=== PATIENT | female | born 1955 | race Caucasian/White ===

== ENCOUNTER 2024-02-07 12:55 | Emergency (ER) | payer MEDICARE, SELFPAY ==
--- NOTE | 2024-02-07 13:00 | ED.EXTPRO ---
HPI - Extremity Problem <Deion Nick PA-C - Last Filed: 02/08/24 12:53> General Chief complaint: Extremity Injury, Lower Stated complaint: Rt knee pain and swelling w/o known cause Time Seen by Provider: 02/07/24 13:00 History of Present Illness HPI Narrative: This is a 68-year-old female presents emergency department due to acute onset right knee pain onset last night. Patient was not recall any acute injuries but states that it began hurting last night while lying in bed. She was able to walk to the bathroom but states that the pain worsened and had a very hard time walking back. She also reports some swelling to the right knee. Patient states that she was a history of gout, osteoarthritis, rheumatoid arthritis. Review of Systems <ANDREW Wiseman Last Filed: 02/08/24 12:53> Review of Systems Narrative: GENERAL: Denies chills, fatigue, malaise, fever, sweats. HEENT: Denies sinus pain, ear pain, sore throat, difficulty swallowing, dizziness. RESPIRATORY: Denies dyspnea, cough, wheezing, hemoptysis, sputum. CARDIOVASCULAR: Denies chest pain, palpitations, orthopnea, edema, GASTROINTESTINAL: Denies nausea, vomiting, abdominal pain, diarrhea, constipation, melena. : Denies dysuria, frequency, incontinence, hematuria, urinary retention. MUSCULOSKELETAL: Reports right knee pain and swelling SKIN: Denies rash, skin lesions, or other NEUROLOGIC: Denies weakness, headache, numbness, change in speech, confusion, seizures, incoordination. PSYCHIATRIC: No concerning psychosocial issues. 12 point review of systems is negative except for those stated above Patient History <ANDREW Wiseman Last Filed: 02/08/24 12:53> Social History Smoking Status: Never smoker Exam <ANDREW Wiseman Last Filed: 02/08/24 12:53> Narrative Exam Narrative: GENERAL: Well-developed patient, in mild distress. HEAD: Atraumatic. Normocephalic. EYES: Pupils equal round and reactive. Extraocular motions intact. No scleral icterus. No injection or drainage. ENT: Nose without bleeding, purulent drainage. Throat without erythema, tonsillar hypertrophy or exudate. Airway patent. NECK: Trachea midline. Non tender EXTREMITIES: Generalized tenderness to palpation to the right knee. Pain with the range of motion but no joint stiffness, no erythema. Neurovascularly intact throughout. Also has tenderness to palpation to the posterior calf. NEURO: AOx3. SKIN: No rash or erythema of visible areas Initial Vital Signs Initial Vital Signs: Vital Signs Temperature 98.1 F 02/07/24 13:08 Pulse Rate 60 02/07/24 13:08 Respiratory Rate 20 02/07/24 13:08 Blood Pressure 166/73 H 02/07/24 13:08 Pulse Oximetry 98 02/07/24 13:08 Oxygen Delivery Method Room Air 02/07/24 13:08 <Zeus Villa MD - Last Filed: 02/08/24 17:53> Initial Vital Signs Initial Vital Signs: Vital Signs Temperature 98.1 F 02/07/24 13:08 Pulse Rate 60 02/07/24 13:08 Respiratory Rate 20 02/07/24 13:08 Blood Pressure 166/73 H 02/07/24 13:08 Pulse Oximetry 98 02/07/24 13:08 Oxygen Delivery Method Room Air 02/07/24 13:08 Procedures <Deion Nick PA-C - Last Filed: 02/08/24 12:53> Joint Aspiration Joint Asp./Inject. 1: Time Out Performed: Yes Side of body: right Joint Aspirated: knee Ultrasound Guidance: No Skin Prep: Chlorhexidine Local Anesthetic: lidocaine 1% Needle Size Used: 18G Fluid Obtained: bloody Patient Tolerated Procedure: Well Complications: none Additional Comments: Performed by my attending physician, Dr. Villa <Zeus Villa MD - Last Filed: 02/08/24 17:53> Joint Aspiration Joint Asp./Inject. 1: Time Out Performed: Yes Joint Aspirated: knee Total fluid obtained (mL): 50 Additional Comments: Performed by my attending physician, Dr. Villa. Jopint fluid sent for cell count, crystals, Gram stain, culture. Course <Deion Nick PA-C - Last Filed: 02/08/24 12:53> Orders Ordered: Discontinued Medications Ketorolac Tromethamine (Ketorolac 30 Mg/Ml Vial) 15 mg IM NOW ONE Stop: 02/07/24 14:12 Last Admin: 02/07/24 14:16 Dose: 15 mg Documented By: KEDAR Lidocaine HCl (Lidocaine 1% 20 Ml) 3 ml SUBCUT NOW ONE Stop: 02/07/24 15:09 Last Admin: 02/07/24 15:49 Dose: 3 ml Documented By: KEDAR Morphine Sulfate (Morphine 4 Mg/Ml Inj) 4 mg IV NOW ONE Stop: 02/07/24 14:35 Last Admin: 02/07/24 14:38 Dose: 4 mg Documented By: KEDAR Ondansetron HCl (Ondansetron 4 Mg/2 Ml Inj) 4 mg IV NOW ONE Stop: 02/07/24 14:35 Last Admin: 02/07/24 14:40 Dose: 4 mg Documented By: KEDAR Consultations Consultation #1: [id number]: Discussed case with the on-call orthopedist, Dr. Kenyon, who stated it would be okay to aspirate the hematoma and no admission or emergent follow up needed. Vital Signs Vital signs: Vital Signs - 8 hr 02/07/24 13:08 Temperature 98.1 F Pulse Rate 60 Respiratory Rate 20 Blood Pressure 166/73 H Pulse Oximetry 98 Oxygen Delivery Method Room Air <Zeus Villa MD - Last Filed: 02/08/24 17:53> Orders Ordered: Discontinued Medications Ketorolac Tromethamine (Ketorolac 30 Mg/Ml Vial) 15 mg IM NOW ONE Stop: 02/07/24 14:12 Last Admin: 02/07/24 14:16 Dose: 15 mg Documented By: KEDAR Lidocaine HCl (Lidocaine 1% 20 Ml) 3 ml SUBCUT NOW ONE Stop: 02/07/24 15:09 Last Admin: 02/07/24 15:49 Dose: 3 ml Documented By: KEDAR Morphine Sulfate (Morphine 4 Mg/Ml Inj) 4 mg IV NOW ONE Stop: 02/07/24 14:35 Last Admin: 02/07/24 14:38 Dose: 4 mg Documented By: KEDAR Ondansetron HCl (Ondansetron 4 Mg/2 Ml Inj) 4 mg IV NOW ONE Stop: 02/07/24 14:35 Last Admin: 02/07/24 14:40 Dose: 4 mg Documented By: KEDAR Vital Signs Vital signs: Vital Signs - 8 hr 02/07/24 13:08 Temperature 98.1 F Pulse Rate 60 Respiratory Rate 20 Blood Pressure 166/73 H Pulse Oximetry 98 Oxygen Delivery Method Room Air MDM - Extremity (Nontraumatic) <Deion Nick PA-C - Last Filed: 02/08/24 12:53> Lab Data Labs: Lab Results 02/07/24 Range/Units 15:44 Fluid Color Red Fluid Appearance Turbid Fluid RBC 0732268 /uL Fld Tot Nucleated Cell 3132 /uL Fluid Neutrophils % 56 % Fluid Lymphocytes % 37 % Fluid Eosinophils % 2 % Fluid Meso/Macro/Green % 5 % Fluid Crystals None present (NONE) Body Fluid Clot No clots present Imaging Data Extremity x-ray #1: Radiologist's Impression: [address] [address] XRay Report Signed Patient: Yue Smallwood MR#: [id number] : 1955 Acct:[id number] Age/Sex: 68 / F Date of Service: 02/07/24 Loc: ED Accession Number: [id number] Procedure: XR knee RT 3V Ordering Provider: Deion Nick PA-C PROCEDURE: XR KNEE RT 3V INDICATIONS: R knee pain TECHNIQUE: 3 views of the knee were acquired. COMPARISON: None. FINDINGS: Bones: No fractures or dislocations. No suspicious bony lesions. Tricompartmental joint space narrowing with associated osteophytosis. Subchondral sclerosis and cystic change of the medial tibiofemoral compartment, with early bony deformity. Soft tissues: Marked joint effusion. No suspicious soft tissue calcifications. IMPRESSION: No acute bony abnormality. Marked joint effusion. Internal derangement not excluded. Moderate to severe tricompartmental osteoarthritis. Kellgren-Rell Grade 2-3. Dictated by: Jean Marie Peterson M.D. on 02/07/2024 at 14:30 Approved by: Jean Marie Peterson M.D. on 02/07/2024 at 14:31 US - DVT: Radiologist's Impression: [address] [address] Ultrasound Report Signed Patient: Yue Smallwood MR#: [id number] : 1955 Acct:[id number] Age/Sex: 68 / F Date of Service: 02/07/24 Loc: ED Accession Number: [id number] Procedure: US periph venous low extrem rt Ordering Provider: Deion Nick PA-C PROCEDURE: US PERIPH VENOUS LOW EXTREM RT INDICATIONS: Right lower extremity edema TECHNIQUE: Real-time imaging, as well as color and pulse Doppler interrogation, were performed of the lower extremity deep veins from the inguinal ligament to the popliteal fossa, with documentation of the visualized calf veins. COMPARISON: None. FINDINGS: The common femoral, femoral, popliteal, and the visualized calf veins are normally compressible, and free of intraluminal thrombus. Color and pulse Doppler demonstrate normal phasic intraluminal flow. There is normal augmentation response to distal compression maneuver. Superior to the knee, there is a large, hypoechoic collection measuring 7.6 x 8.1 x 4.2 cm. IMPRESSION: No findings of lower extremity deep venous thrombosis. Large suprapatellar hematoma. Dictated by: Jean Marie Peterson M.D. on 02/07/2024 at 14:37 Approved by: Jean Marie Peterson M.D. on 02/07/2024 at 14:37 MDM Narrative Medical decision making narrative: ED course: This is a 68-year-old female presents emergency department due to acute onset right knee pain. X-ray was ordered which was negative for fractures but did show a large effusion. Ultrasound DVT he was ultrasound also ordered as patient was presenting with some calf tenderness. Ultrasound showed a large suprapatellar hematoma. This was discussed with orthopedist, Dr. Kenyon, who stated that would be okay to aspirate. Discussed case with my attending physician, Dr. Villa, who performed the joint aspiration without complications. Aspirate contained grossly blood. We will send fluid for cell count, culture, and crystals. Patient knee was wrapped in Art wrap, given knee immobilizer, and will follow up with Dr. Kenyon's office. CC: Right knee pain Complicating co-morbidities: Gout, osteoarthritis, rheumatoid arthritis Data collected from: Previous notes Medical records reviewed: Patient has no records to review Differential considered, but not limited to: Gout, rheumatoid arthritis, ACL injury, meniscal injury, fracture Exam documented above, pertinent findings include: No significant erythema or joint stiffness concerning for septic arthritis Lab Test results independently reviewed as above. Pertinent findings: None obtained Imaging studies independently reviewed: As above Scores Used: None MIPS Elements: None Consultations: None Treatments: Joint inspiration Re-evaluations: None Discussion: Discussed plan with the patient was comfortable with the plan Diagnosis: Knee injury Disposition: see below, along with detailed discharge instructions that have been reviewed with patient as well as indications for ED re-evaluation and additional outpatient follow up <Zeus Villa MD - Last Filed: 02/08/24 17:53> Lab Data Labs: Lab Results 02/07/24 Range/Units 15:44 Fluid Color Red Fluid Appearance Turbid Fluid RBC [id number] /uL Fld Tot Nucleated Cell 3132 /uL Fluid Neutrophils % 56 % Fluid Lymphocytes % 37 % Fluid Eosinophils % 2 % Fluid Meso/Macro/Green % 5 % Fluid Crystals None present (NONE) Body Fluid Clot No clots present Discharge Plan Departure Patient Disposition: Home Clinical Impression: Effusion of knee Activity Restrictions/Additional Instructions: Thank you for coming to the [facility] Emergency Department today. I am glad that we are able to aspirate the knee. This should provide some pain relief. Please also follow up with Dr. Kenyon's office for outpatient management and is you may have injured a ligament or other soft tissue your knee. X-rays showed no fractures. The ultrasound showed no blood clot. You may continue to take the pain medications that you have already been prescribed as prescribed. Please return to the emergency department if you develop any chest pain, shortness of breath, redness coming from the knee, fevers or any other concerning signs or symptoms. I hope you feel better soon. Please follow up with your primary care provider within a week if your symptoms continue. If you do not have a primary care provider please contact the [facility] Resource line at [phone]. They will ask some questions about your medical history and help you get set up with a provider in the community. Referrals: Haseeb Kenyon MD [Physician] - (f/u R knee injury ) Stand Alone Forms: Patient Portal/API ED Sign-out <Zeus Villa MD - Last Filed: 02/08/24 17:53> Cosign ED Attending Rajature Attestation: I was immediately available in the department for consultation. This documentation has been reviewed and I agree with assessment and plan. Supervised by Zeus Villa MD
[2024-02-07 13:08] VITALS: BP 166/73; PULSE 60; RESP 20; TEMP 36.7; O2SAT 98; BMI 34.2
--- NOTE | 2024-02-07 13:10 | DI.US.S_ITS ---
PROCEDURE: US PERIPH VENOUS LOW EXTREM RT INDICATIONS: Right lower extremity edema TECHNIQUE: Real-time imaging, as well as color and pulse Doppler interrogation, were performed of the lower extremity deep veins from the inguinal ligament to the popliteal fossa, with documentation of the visualized calf veins. COMPARISON: None. FINDINGS: The common femoral, femoral, popliteal, and the visualized calf veins are normally compressible, and free of intraluminal thrombus. Color and pulse Doppler demonstrate normal phasic intraluminal flow. There is normal augmentation response to distal compression maneuver. Superior to the knee, there is a large, hypoechoic collection measuring 7.6 x 8.1 x 4.2 cm. IMPRESSION: No findings of lower extremity deep venous thrombosis. Large suprapatellar hematoma. Dictated by: Jean Marie Peterson M.D. on 02/07/2024 at 14:37 Approved by: Jean Marie Peterson M.D. on 02/07/2024 at 14:37
--- NOTE | 2024-02-07 13:10 | DI.RAD.S_ITS ---
PROCEDURE: XR KNEE RT 3V INDICATIONS: R knee pain TECHNIQUE: 3 views of the knee were acquired. COMPARISON: None. FINDINGS: Bones: No fractures or dislocations. No suspicious bony lesions. Tricompartmental joint space narrowing with associated osteophytosis. Subchondral sclerosis and cystic change of the medial tibiofemoral compartment, with early bony deformity. Soft tissues: Marked joint effusion. No suspicious soft tissue calcifications. IMPRESSION: No acute bony abnormality. Marked joint effusion. Internal derangement not excluded. Moderate to severe tricompartmental osteoarthritis. Kellgren-Rell Grade 2-3. Dictated by: Jean Marie Peterson M.D. on 02/07/2024 at 14:30 Approved by: Jean Marie Peterson M.D. on 02/07/2024 at 14:31
[2024-02-07] MEDS: KETOROLAC 30 MG/ML VIAL 15 MG IM (14:16)
[2024-02-07] MEDS: MORPHINE 4 MG/ML INJ IV (14:38)
[2024-02-07] MEDS: ONDANSETRON 4 MG/2 ML INJ IV (14:40)
[2024-02-07] MEDS: LIDOCAINE 1% 20 ML 3 ML SUBCUT (15:49)
[2024-02-07 16:15] VITALS: BP 153/72; PULSE 63; RESP 18; O2SAT 97
[2024-02-07 16:20] LABS: Body Fluid Red Blood Cells 2850000 /uL; Body Fluid Tot Nucleated Cells 3132 /uL
[2024-02-07 16:37] LABS: Body Fluid Appearance TURBID; Body Fluid Clotted? NO CLOTS PRESENT; Body Fluid Color RED; Crystals Body Fluid - IN-HOUSE NONE Present; Eosinophils Body Fluid 2 %; Lymphocytes Body Fluid 37 %; MESO/MACRO/MONO Body Fluid 5 %; Neutrophils Body Fluid 56 %
== END 2024-02-07 16:21 | disposition home or self-care (01) ==
PROVIDERS: Emergency Provider Physician Assistant Medical
DX: M25.461 Effusion, right knee (principal)
CPT/HCPCS: 20610; 73562; 87070; 87075; 87205; 89051; 89060; 93971; 96372; 96374; 96375; 99283; 99284; J1885; J2270; J2405

== ENCOUNTER 2024-02-16 15:35 | Emergency (ER) | payer MEDICARE, SELFPAY ==
[2024-02-16] VITALS (13 sets, daily range): BP systolic 137–186; BP diastolic 70–96; PULSE 52–68; RESP 16; TEMP 36.6; O2SAT 92–100; BMI 34.2
[2024-02-16] MEDS: HYDROMORPHONE 1 MG INJ SUBCUT (16:34)
--- NOTE | 2024-02-16 18:08 | DI.RAD.S_ITS ---
PROCEDURE: XR KNEE RT 1TO2V INDICATIONS: knee pain TECHNIQUE: 3 views of the knee were acquired. COMPARISON: [facility], , XR KNEE RT 3V, 02/07/2024, 13:11. FINDINGS: Bones: Moderate to severe similar degenerative changes. There is a questionable lucency at the left lateral tibial plateau. Soft tissues: Large joint effusion. Soft tissue swelling. IMPRESSION: Moderate to severe degenerative changes again seen. There is a questionable lucency versus artifact at the left lateral tibial plateau. Large joint effusion. Consider cross-sectional imaging to further evaluate. Dictated by: Elijah Nagel M.D. on 02/16/2024 at 18:50 Approved by: Elijah Nagel M.D. on 02/16/2024 at 18:51
--- NOTE | 2024-02-16 18:10 | ED.LOWEXIN ---
HPI - Extremity Injury (Lower) General Chief Complaint: Extremity Injury, Lower Stated Complaint: R knee pain/hem bursitis Time Seen by Provider: 02/16/24 16:25 Source: patient, RN notes reviewed and old records reviewed Limitations: no limitations History of Present Illness HPI Narrative: This is a 68 year old female with atrial fibrillation Xarelto, cardiac defibrillator and history of gout who presents with complaint of right knee pain increased swelling. Patient was here on 02/07/2024 had arthrocentesis and found to have a large suprapatellar hematoma. Patient does not recall any injury or trauma. She states it felt improved afterwards. She was using an Art wrap and a knee immobilizer followed up with Orthopedic surgery who encouraged her to take off the knee immobilizer and walk and move more to mobilize fluid. She states she was doing well until early this morning and started have increasing pain and swelling again. Patient has not had similar issues in the past. She denies any fevers or chills, no new chest pain or shortness of breath she has had some nausea with the pain. No GI or urinary symptoms. No new swelling of the lower leg. She has not had any other inappropriate bleeding or bruising. She states she has been taking her Xarelto regularly she takes 20 mg daily. Was started in June after having multiple shocks from her defibrillator in his single day. Patient lives at home with her and dog. Related Data Allergies Allergy/AdvReac Type Severity Reaction Status Date / Time cephalexin [From Keflex] Allergy Verified 02/16/24 18:48 Sulfa (Sulfonamide Allergy Verified 02/16/24 18:46 Antibiotics) Review of Systems Review of Systems ROS Unobtainable: All systems reviewed & are unremarkable except as noted in HPI and below Patient History Social History Smoking Status: Never smoker Smoking Status: Never smoker Substance Use Type: does not use Exam Narrative Exam Narrative: GENERAL: Alert and oriented x three, moderate distress HEENT: Head normocephalic, atraumatic, EOMI, pupils reactive, face symmetric, moist mucous membranes NECK: Supple, full range of motion CARDIOVASCULAR: Regular rate and rhythm without murmurs, rubs or gallops. RESPIRATORY: Breath sounds equal bilaterally, no wheezes rales or rhonchi. ABDOMEN: Soft, nontender. Normoactive bowel sounds all 4 quadrants. No guarding or rebound, rigidity, no mass : No CVA tenderness EXTREMITIES: Patient has a mildly decreased motion at the right knee but does have clear swelling. There is a small amount of bruising where she had her prior tap, this is suprapatellar. Patient does not have any discrete bony tenderness except for the right hip. She states this has been more painful as well. She has good movement at her hip. No other bony tenderness. No warmth, no erythema, no other ecchymosis or hematomas appreciated. No clubbing or edema. Neurovascularly intact NEUROLOGICAL: Cranial nerves II through XII grossly intact. Moving all extremities SKIN: Warm, dry, no petechiae, no rashes or lesions otherwise noted. Initial Vital Signs Initial Vital Signs: Vital Signs Temperature 97.8 F 02/16/24 15:45 Pulse Rate 60 02/16/24 15:45 Respiratory Rate 16 02/16/24 15:45 Blood Pressure 137/96 H 02/16/24 15:45 Pulse Oximetry 97 02/16/24 15:45 Oxygen Delivery Method Room Air 02/16/24 15:45 Procedures Joint Aspiration Joint Asp./Inject. 1: Side of body: right Joint Aspirated: knee Skin Prep: Povidone-Iodine1% Local Anesthetic: bupivacaine 0.5% Amount of anesthesia used (mL): 6 Needle Size Used: 18G Fluid Obtained: bloody Total fluid obtained (mL): 5 Patient Tolerated Procedure: Well Course Orders Ordered: ED Orders 02/16/24 18:30 XR hip w pel if done RT 2V Stat 02/16/24 18:42 CBC Auto Diff [Complete Blood Count AUTO DIFF] Stat CMP [Comprehensive Metabolic Panel] Stat PTT Partial Thromboplastin Karthik Stat Prothrombin Time INR Stat 02/16/24 19:36 CT LE RT wo con Stat 02/16/24 19:50 Body Fluid Culture Stat Cell Count w Diff Body Fluid Stat Discontinued Medications Hydrocodone Bitart/Acetaminophen (Hydrocodone/Acet 5/325 Prepack) 1 bottle MISC DIRECTED ONE Stop: 02/16/24 21:44 Last Admin: 02/16/24 21:58 Dose: 1 bottle Documented By: KEDAR Hydromorphone HCl (Hydromorphone 1 Mg Inj) 1 mg SUBCUT NOW ONE Stop: 02/16/24 16:26 Last Admin: 02/16/24 16:34 Dose: 1 mg Documented By: KEDAR Hydromorphone HCl (Hydromorphone 1 Mg Inj) 1 mg IV NOW ONE Stop: 02/16/24 19:09 Last Admin: 02/16/24 19:11 Dose: 1 mg Documented By: SARITHA Ketorolac Tromethamine (Ketorolac 30 Mg/Ml Vial) 15 mg IV NOW ONE Stop: 02/16/24 18:31 Last Admin: 02/16/24 18:46 Dose: 15 mg Documented By: SARITHA Ondansetron HCl (Ondansetron 4 Mg/2 Ml Inj) 4 mg IV NOW ONE Stop: 02/16/24 20:37 Last Admin: 02/16/24 20:41 Dose: 4 mg Documented By: KEDAR Ondansetron HCl (Ondansetron 4 Mg Odt Prepack) 1 bottle MISC DIRECTED ONE Stop: 02/16/24 21:44 Last Admin: 02/16/24 21:58 Dose: 1 bottle Documented By: KEDAR Vital Signs Vital signs: Vital Signs - 8 hr 02/16/24 19:30 02/16/24 19:31 02/16/24 19:31 Pulse Rate 65 57 L Blood Pressure 158/72 H Pulse Oximetry 92 92 02/16/24 20:00 02/16/24 20:00 02/16/24 20:44 Pulse Rate 57 L 67 Blood Pressure 162/78 H Pulse Oximetry 98 94 02/16/24 21:00 02/16/24 21:30 Pulse Rate 65 68 Blood Pressure Pulse Oximetry 100 99 MDM - Extremity Injury (Lower) Lab Data 02/16/24 18:42 02/16/24 18:42 Labs: Lab Results 02/16/24 02/16/24 Range/Units 18:42 19:50 WBC 10.6 (4.5-11.0) X10^3/uL RBC 3.64 L (4.0-5.2) X10^6/uL Hgb 11.6 L (12.0-16.0) g/dL Hct 35.0 L (36-46) % MCV 95.9 (80-100) fL MCH 31.9 (26-34) PG MCHC 33.2 (30-36) % RDW 14.2 (11.6-14.8) % Plt Count 399 (150-400) X10^3/uL Neut % (Auto) 70.8 (50-75) % Lymph % (Auto) 15.6 L (25-40) % [place] % (Auto) 10.5 (3-14) % Eos % (Auto) 2.2 (2-4) % Baso % (Auto) 0.9 (0-2) % Neut # (Auto) 7500 H (5889-0189) /uL Lymph # (Auto) 1600 (2371-0304) /uL [place] # (Auto) 1100 H (0-900) /uL Eos # (Auto) 200 (0-450) /uL Baso # (Auto) 100 (0-100) /uL PT 34.2 H (9.4-12.5) SECONDS INR 2.9 H (0.9-1.3) APTT 51 H (25.1-36.5) SECONDS Sodium 135 L (137-145) mmol/L Potassium 3.7 (3.4-5.1) mmol/L Chloride 105 (98-107) mmol/L Carbon Dioxide 19 L (22-32) mmol/L BUN 23 H (7-17) mg/dL Creatinine 1.10 H (0.52-1.04) mg/dL Estimated GFR 55 L (>60) mL/min BUN/Creatinine Ratio 20.9 (6-22) Glucose 127 H (80-110) mg/dL Calcium 9.5 (8.4-10.2) mg/dL Total Bilirubin 1.9 H (0.2-1.3) mg/dL AST 35 (14-36) IU/L ALT 18 (<35) IU/L Alkaline Phosphatase 110 (38-126) U/L Total Protein 7.0 (6.3-8.2) g/dL Albumin 3.7 (3.5-5.0) g/dL Globulin 3.3 (1.7-4.1) g/dL Albumin/Globulin Ratio 1.1 (1.0-2.8) Fluid Color Bloody Fluid Appearance Turbid Fluid RBC [id number] /uL Fld Tot Nucleated Cell 7028 /uL Fluid Neutrophils % 67 % Fluid Lymphocytes % 26 % Fluid Eosinophils % 1 % Fluid [place]/Macro/[place] % 6 % Body Fluid Clot No clots present Imaging Data dvt US: Radiologist's Impression: Close Knee X-Ray 02/16/24 Vascular Ultrasound (Signed) Jean Marie Peterson - 02/07/24 Knee X-Ray (Signed) Jean Marie Peterson - 02/07/24 Launch?[address] [address] Ultrasound Report Signed Patient: Yue Smallwood MR#: [id number] : 1955 Acct:[id number] Age/Sex: 68 / F Date of Service: 02/07/24 Loc: ED Accession Number: [id number] Procedure: US periph venous low extrem rt Ordering Provider: Deion Nick PA-C PROCEDURE: US PERIPH VENOUS LOW EXTREM RT INDICATIONS: Right lower extremity edema TECHNIQUE: Real-time imaging, as well as color and pulse Doppler interrogation, were performed of the lower extremity deep veins from the inguinal ligament to the popliteal fossa, with documentation of the visualized calf veins. COMPARISON: None. FINDINGS: The common femoral, femoral, popliteal, and the visualized calf veins are normally compressible, and free of intraluminal thrombus. Color and pulse Doppler demonstrate normal phasic intraluminal flow. There is normal augmentation response to distal compression maneuver. Superior to the knee, there is a large, hypoechoic collection measuring 7.6 x 8.1 x 4.2 cm. IMPRESSION: No findings of lower extremity deep venous thrombosis. Large suprapatellar hematoma. Dictated by: Jean Marie Peterson M.D. on 02/07/2024 at 14:37 Approved by: Jean Marie Peterson M.D. on 02/07/2024 at 14:37 [facility] Narrative Medical decision making narrative: 68-year-old female who was here on 02/06 2, no fractures marked joint effusion internal derangement not excluded moderate to severe tricompartmental osteoarthritis on 02/07/2024 x-ray. Patient also had ultrasound which showed a large suprapatellar hematoma that was 7.6 x 8.1 x 4.2 cm. Had normal flow on DVT ultrasound and normal Augmentin response. Patient's Gram stain and culture from 02/07/2024 are negative and finalized. Patient had RBCs, 3000 nucleated cells with million, 850,000 RBCs. No crystals were present. Suspect patient has reaccumulation of her suprapatellar hematoma, she is on Xarelto which would make this more likely she does not recall any trauma. She also had remove the knee immobilizer and having more motion and movement likely exacerbated that. We will go ahead and obtain labs as well as platelets coags to look for any other significant changes. She also notes some increased pain in her right hip although she was able to move it but is tender over that site so x-ray was ordered and x-ray was repeated of the knee. Discussed risks versus benefits for the tap for her knee. I suspect it will reaccumulate. We discussed stopping her Xarelto but she was quite a few cardiac issues. Hip x-ray shows no acute fracture or dislocation, knee x-ray shows large joint effusion moderate to severe degenerative changes questionable lucency versus artifact left lateral tibial plateau. This is not the area where patient is tender at this time. Patient's x-ray shows possible lucency versus artifact left lateral tibial plateau patient's inner although that is not the location of her main pain but we will go ahead and obtained CT imaging after discussion with patient. She states she has pain throughout the entire knee although it is more localized above. Labs show hemoglobin of 10 hemoglobin 11.6 platelets of 399. INR is elevated at 2.9, PTT is 51 creatinine is 1.10, sodium is 135 CO2 is 19 potassium and chloride are otherwise appropriate BUN 23 bilirubin is 1.9, LFTs are negative. Spoke with Dr. Ramires, recommended arthrocentesis if patient is unable to weightbear. Noted last was hemarthrosis and maybe clotted can inject some saline. Also notes that patient can follow up in the office to have arthrocentesis as well. Reviewed labs and findings including patient's INR of 2.9 on her Xarelto. He also recommends compression or Art wrap. Spoke with patient she would like to proceed with a attempted arthrocentesis. Patient states they got about 50 mL often this is consistent with patient's note from prior. Patient was prepped, bupivacaine was used for pain management and I was able to take a 5 mL but not able to obtain any additional. Suspect it maybe clotted attempted multiple times. CT lower extremity shows no fracture large joint effusion scant subcutaneous gas possible small intramuscular hematoma of the medial distal thigh. Gas and intramuscular hematoma secondary from the attempted aspiration. Patient has had some improvement in pain. But she still has a large effusion was wrapped with Art wrap. Discussed she may hold her Xarelto for a day or 2 and talk with her cardiology team to see if they are comfortable with that plan as well. Discussed Dr. Rayo from Orthopedic surgery so she can also follow up with the office. That they be happy to tap it as well if needed. Discharge Plan Departure Patient Disposition: Home Clinical Impression: Effusion of knee Activity Restrictions/Additional Instructions: Please follow up with Orthopedic surgery. Contacts included below. Please continue to keep your knee Art wrapped, maybe helpful to use the knee immobilizer part-time. I would also talk with your cardiology or primary care team about holding your Xarelto, your INR today is 2.9 your PTT is also elevated this is an important medication to prevent major complications but is likely contributing to your joint effusion. There is a culture pending of the shows any signs of infection you would be contacted. Can take Zofran 1 tablet every 6 hours as needed. You can take pain medication as prescribed. This medication can make you sleepy do not drive, perform hazardous activities or make any major decisions while taking it. This medication will make you constipated please take a stool softener once to twice daily until stools are soft and regular. Prescription sent to [facility] in [place]. Please return for fevers new redness, increasing swelling of the knee any signs of infection, if you are having any bruising or bleeding that is inappropriate in other places, new chest pain or shortness of breath, persistent vomiting, black or bloody stools or other new or concerning changes. Referrals: Karol Ramires MD [Physician] - Stand Alone Forms: Patient Portal/API
--- NOTE | 2024-02-16 18:30 | DI.RAD.S_ITS ---
PROCEDURE: XR HIP W PEL IF DONE RT 2V INDICATIONS: knee and hip pain TECHNIQUE: AP pelvis with lateral view(s) of the right hip(s). COMPARISON: None. FINDINGS: Bones: No definite acute right hip fracture or dislocation. Osteoarthritic changes are noted in bilateral hip joints. No evidence of avascular necrosis of femoral head. Pelvic ring appears intact. No suspicious bony lesions. Soft tissues: The visualized bowel gas pattern is normal. No suspicious soft tissue calcifications. IMPRESSION: No definite acute right hip fracture or dislocation. Bilateral hip joint osteoarthritis. No evidence of avascular necrosis. If there is high clinical suspicion of a right hip fracture, CT of hip can be done for further evaluation. Dictated by: Gene Rayo M.D. on 02/16/2024 at 19:12 Approved by: Gene Rayo M.D. on 02/16/2024 at 19:14
[2024-02-16] MEDS: KETOROLAC 30 MG/ML VIAL 15 MG IV (18:46)
[2024-02-16 18:54] LABS: Add Manual Diff / Slide Review NO; Basophils Absolute Auto 100 /uL (0-100); Basophils Percent Auto 0.9 % (0-2); Eosinophils Absolute Auto 200 /uL (0-450); Eosinophils Percent Auto 2.2 % (2-4); Hemoglobin 11.6 g/dL (12.0-16.0); Lymphocytes Absolute Auto 1600 /uL (1100-4500); Lymphocytes Percent Auto 15.6 % (25-40); Mean Corpuscular HGB Conc 33.2 % (30-36); Mean Corpuscular Hemoglobin 31.9 PG (26-34); Mean Corpuscular Volume 95.9 fL (80-100); Monocytes Absolute Auto 1100 /uL (0-900); Monocytes Percent Auto 10.5 % (3-14); Neutrophils Absolute Auto 7500 /uL (1500-7000); Neutrophils Percent Auto 70.8 % (50-75); Platelet Count 399 X10^3/uL (150-400); Red Blood Cell Count 3.64 X10^6/uL (4.0-5.2); Red Cell Distribution Width 14.2 % (11.6-14.8); White Blood Cell Count 10.6 X10^3/uL (4.5-11.0)
[2024-02-16 19:00] LABS: INR 2.9 (0.9-1.3); Prothrombin Time 34.2 SECONDS (9.4-12.5)
[2024-02-16 19:03] LABS: PTT Partial Thromboplastin Tim 51 SECONDS (25.1-36.5)
[2024-02-16 19:04] LABS: Alanine Aminotransferase 18 IU/L (<35); Albumin 3.7 g/dL (3.5-5.0); Albumin Globulin Ratio 1.1 (1.0-2.8); Alkaline Phosphatase 110 U/L (38-126); Aspartate Aminotransferase 35 IU/L (14-36); BUN Creatinine Ratio 20.9 (6-22); Bilirubin Total 1.9 mg/dL (0.2-1.3); Blood Urea Nitrogen 23 mg/dL (7-17); Calcium 9.5 mg/dL (8.4-10.2); Carbon Dioxide 19 mmol/L (22-32); Chloride 105 mmol/L (98-107); Estimated Glomerular Filt Rate 55 mL/min (>60); Globulin 3.3 g/dL (1.7-4.1); Glucose 127 mg/dL (80-110); HEMOLYSIS < 15 (0-50); Potassium 3.7 mmol/L (3.4-5.1); Sodium 135 mmol/L (137-145)
[2024-02-16] MEDS: HYDROMORPHONE 1 MG INJ IV (19:11)
--- NOTE | 2024-02-16 19:20 | PC.NURSE ---
dorsalis pedis and posterior tibial atery located on the right foot at a rate of 59BPM
--- NOTE | 2024-02-16 19:36 | DI.CT.S_ITS ---
PROCEDURE: CT LE RT WO CON INDICATIONS: lucency lateral tibial plateau, hemarthorsis, no trau TECHNIQUE: Noncontrast 1-1.5 mm axial sections acquired from the mid-patella to the proximal tibia, with coronal and sagittal reformats. COMPARISON: [facility], CR, XR KNEE RT 1TO2V, 02/16/2024, 18:06. FINDINGS: Image quality: Excellent. Bones: No convincing fracture. Severe tricompartmental DJD. No dislocation. Soft tissues: Large joint effusion. No lipohemarthrosis demonstrated. Scant subcutaneous gas anterior to the quadriceps tendon. Possible small intramuscular hematoma at the medial aspect of the distal thigh, (5/7). IMPRESSION: No fracture. Severe DJD. Large joint effusion. Scant subcutaneous gas. Possible small intramuscular hematoma at the medial distal thigh. Dictated by: Bill Cruz M.D. on 02/16/2024 at 21:05 Approved by: Bill Cruz M.D. on 02/16/2024 at 21:10
[2024-02-16] MEDS: ONDANSETRON 4 MG/2 ML INJ IV (20:41)
[2024-02-16 20:52] LABS: Body Fluid Red Blood Cells 2304026 /uL; Body Fluid Tot Nucleated Cells 7028 /uL
[2024-02-16 20:54] LABS: Body Fluid Appearance TURBID; Body Fluid Clotted? NO CLOTS PRESENT; Body Fluid Color BLOODY
[2024-02-16 21:02] LABS: Eosinophils Body Fluid 1 %; Lymphocytes Body Fluid 26 %; MESO/MACRO/MONO Body Fluid 6 %; Neutrophils Body Fluid 67 %
[2024-02-16] MEDS: HYDROCODONE/ACET 5/325 PREPACK 1 BOTTLE MISC (21:58)
[2024-02-16] MEDS: ONDANSETRON 4 MG ODT PREPACK 1 BOTTLE MISC (21:58)
== END 2024-02-16 22:19 | disposition home or self-care (01) ==
PROVIDERS: Emergency Provider Emergency Medicine
DX: M25.461 Effusion, right knee (principal); M79.81 Nontraumatic hematoma of soft tissue; R60.9 Edema, unspecified; I48.91 Unspecified atrial fibrillation; Z79.01 Long term (current) use of anticoagulants
CPT/HCPCS: 20610; 73502; 73560; 73700; 80053; 85025; 85610; 85730; 87070; 87075; 87205; 89051; 96372; 96374; 96375; 99283; 99284; J1170; J1885; J2405